=== PATIENT | male | born 1995 | race Two or more races ===

== ENCOUNTER 2021-01-17 10:24 | Inpatient (IN) | payer SELFPAY ==
[~2021-01-17] VITALS: Ht 188 cm; Wt 90.9 kg
[2021-01-17] VITALS (24 sets, daily range): BP systolic 95–120; BP diastolic 57–84
[~2021-01-17 10:24] MED LIST: ETOMIDATE 2MG/ML 10ML VIAL IV ONE; SUCCINYLCHOLINE CHLORIDE 200MG/10ML IV ONE
[2021-01-17] MEDS ORDERED: SODIUM CHLORIDE 0.9% 1,000 ML IV ONE ×2 (10:45→11:00)
[2021-01-17] MEDS ORDERED: NALOXONE HCL 0.4 MG/ML 1ML VIAL IV ONE (10:45)
[2021-01-17 10:58] LABS: BASOPHILS % 0.2 % (0.0-2.0); HEMATOCRIT. 44.3 % (42.0-52.0); HEMOGLOBIN. 14.9 g/dL (14.0-18.0); LYMPHOCYTES % 9.1 % (20.0-50.0); MEAN CORPUSCULAR HEMOGLOBIN 29.2 pg (28.0-32.0); MEAN CORPUSCULAR VOLUME 86.9 fL (80.0-94.0); NEUTROPHILS % 87.7 % (40.0-76.0); PLATELET 302 x1000/uL (130-400); RED CELL DISTRIBUTION WIDTH 13.1 % (11.6-14.6)
[2021-01-17] MEDS ORDERED: PROPOFOL 10MG/ML 100ML 100 ML IV SCH (11:00)
[2021-01-17] MEDS ORDERED: ETOMIDATE 2MG/ML 10ML VIAL IV ONE (11:00)
[2021-01-17] MEDS ORDERED: SUCCINYLCHOLINE CHLORIDE 200MG/10ML IV ONE (11:00)
[2021-01-17 11:05] LABS: CHLORIDE 98 mEq/L (98-107)
[2021-01-17 11:06] LABS: CLARITY URINE CLEAR (CLEAR); COLOR URINE YELLOW (YELLOW); KETONES URINE TRACE (NEGATIVE); LEUKOCYTE ESTERASE URINE NEGATIVE (NEGATIVE); NITRITE URINE NEGATIVE (NEGATIVE); OCCULT BLOOD URINE NEGATIVE (NEGATIVE); PROTEIN URINE TRACE (NEGATIVE); SPECIFIC GRAVITY URINE 1.013 (1.005-1.030)
[2021-01-17] MEDS ORDERED: PIPERACILLIN/TAZOBACTAM 3.375GM/50ML PREMIX IV NR (11:30)
[2021-01-17 11:51] LABS: OPIATES URINE SCREEN NEGATIVE (NEGATIVE)
[2021-01-17 11:52] LABS: *AMPHETAMINES SCREEN URINE NEGATIVE (NEGATIVE); *BARBITURATES SCREEN URINE NEGATIVE (NEGATIVE); *BENZODIAZEPINES SCREEN URINE PRESUMTIVE POSITIVE (NEGATIVE); *COCAINE SCREEN URINE NEGATIVE (NEGATIVE); METHADONE URINE SCREEN NEGATIVE (NEGATIVE); PHENCYCLIDINE URINE SCREEN NEGATIVE (NEGATIVE)
[2021-01-17 11:54] LABS: CANNABINOID URINE SCREEN PRESUMTIVE POSITIVE (NEGATIVE)
[2021-01-17] MEDS ORDERED: MIDAZOLAM 100MG/100ML PMX 100 ML IV PRN (12:00)
[2021-01-17] MEDS: MIDAZOLAM HCL 100 MG in SODIUM CHLORIDE 0.9% 100 ML IV PRN ×2 (12:15→14:24)
[2021-01-17] MEDS: PROPOFOL 10MG/ML 100ML 100 ML IV PRN ×4 (12:17→21:48)
[2021-01-17 14:01] LABS: BG BASE EXCESS 0.3 mmol/L (-2.0-2.0); BG CARBOXYHEMOGLOBIN 0.6 % (0.5-1.5); BG DEOXYHEMOGLOBIN 2.2 % (0.0-5.0); BG FRACTION INSPIRED OXYGEN 100; BG HCO3 ACT 26.2 mmol/L (22.0-26.0); BG METHEMOGLOBIN 0.4 % (0.0-1.5); BG OXYGEN SATURATION 97.8 % (92.0-98.5); BG OXYHEMOGLOBIN 96.8 % (94.0-97.0); BG PCO2 47.1 mmHg (35.0-45.0); BG PH 7.363 (7.350-7.450); BG PO2 102.6 mmHg (75.0-100.0); BG SAMPLE SITE RIGHT RADIAL; BG TOTAL HEMOGLOBIN 14.5 g/dL (12.0-18.0); BG VENT MODE VENT - AC
[2021-01-17] MEDS ORDERED: NITROGLYCERIN 0.4MG TABLET SL SL PRN (15:00)
[2021-01-17] MEDS ORDERED: DOCUSATE SODIUM 100MG CAPSULE PO PRN (15:00)
[2021-01-17] MEDS ORDERED: GUAIFENESIN 200MG/10ML SUGAR FREE UDC PO PRN (15:00)
[2021-01-17] MEDS ORDERED: IPRATROPIUM/ALBUTEROL 0.5-3(2.5)MG/3ML NEB NEB PRN (15:00)
[2021-01-17] MEDS ORDERED: MAGNESIUM/ALUMINUM HYDROXIDE/SIMETHICONE 30ML UDC PO PRN (15:00)
[2021-01-17] MEDS ORDERED: PIPERACILLIN/TAZ 3.375G PREMIX 50 ML IV SCH (15:00)
[2021-01-17] MEDS ORDERED: ONDANSETRON HCL 4MG/2ML INJ IV PRN (15:00)
[2021-01-17] MEDS ORDERED: NOREPINEPHRINE 32 MG in DEXT 5% WATER 218 ML IV PRN (15:00)
[2021-01-17] MEDS ORDERED: IPRATROPIUM/ALBUTEROL 0.5-3(2.5)MG/3ML NEB HHN SCH (15:00)
[2021-01-17 15:35] LABS: T4 FREE 1.05 ng/dL (0.76-1.46)
[2021-01-17] MEDS: ENOXAPARIN 40MG/0.4ML SYR SUBCUT SCH (15:53)
[2021-01-17] MEDS: PANTOPRAZOLE SODIUM 40 MG/VIAL IV SCH (15:53)
[2021-01-17 15:56] LABS: FOLIC ACID (FOLATE) SERUM >20 ng/mL ng/mL (>5.38)
[2021-01-17] MEDS: DEXT 5%/LACTATED RINGERS 1,000 ML IV SCH (15:57)
[2021-01-17 15:58] LABS: FERRITIN 129 ng/mL (22-322)
[2021-01-17] MEDS ORDERED: MIDAZOLAM HCL 100 MG in SODIUM CHLORIDE 0.9% 80 ML IV PRN (16:00)
[2021-01-17 16:08] LABS: VITAMIN B12 SERUM 850 pg/mL (211-911)
[2021-01-17] MEDS ORDERED: VANCOMYCIN 2,000 MG in DEXT 5% WATER 500 ML IV SCH (17:00)
[2021-01-17] MEDS: FENTANYL CITRATE/PF 2,500 MCG in SODIUM CHLORIDE 0.9% 200 ML IV PRN (17:17)
[2021-01-17] MEDS: PIPERACILLIN/TAZOBACTAM 3.375G in DEXT 5% WATER 50ML IV SCH ×2 (17:18→23:32)
[2021-01-17] MEDS ORDERED: *PATIENT'S OWN MEDICATION STORAGE XX SCH (17:45)
[2021-01-17 23:26] LABS: CREATINE KINASE MB FRACTION 7.6 ng/mL (0.5-3.6)
[2021-01-18] VITALS (85 sets, daily range): BP systolic 92–173; BP diastolic 50–136
[2021-01-18] MEDS: PROPOFOL 10MG/ML 100ML 100 ML IV PRN ×6 (00:23→20:38)
[2021-01-18] MEDS: IPRATROPIUM/ALBUTEROL 0.5-3(2.5)MG/3ML NEB HHN SCH ×6 (00:33→20:52)
[2021-01-18] MEDS: DEXT 5%/LACTATED RINGERS 1,000 ML IV SCH ×2 (05:09→17:05)
[2021-01-18] MEDS: PIPERACILLIN/TAZOBACTAM 3.375G in DEXT 5% WATER 50ML IV SCH ×3 (05:22→17:05)
[2021-01-18 06:22] LABS: BASOPHILS % 0.5 % (0.0-2.0); EOSINOPHILS % 0.1 % (0.0-5.0); HEMOGLOBIN. 12.5 g/dL (14.0-18.0); LYMPHOCYTES % 14.8 % (20.0-50.0); MEAN CORPUSCULAR HEMOGLOBIN 28.7 pg (28.0-32.0); MEAN CORPUSCULAR VOLUME 87.2 fL (80.0-94.0); MEAN PLATELET VOLUME 8.5 fl (7.4-10.4); MONOCYTES % 6.9 % (2.0-8.0); NEUTROPHILS % 77.7 % (40.0-76.0); PLATELET 237 x1000/uL (130-400); RED BLOOD CELL COUNT 4.35 mill/uL (4.7-6.1); RED CELL DISTRIBUTION WIDTH 13.1 % (11.6-14.6)
[2021-01-18 06:24] LABS: CHLORIDE 103 mEq/L (98-107)
[2021-01-18 06:42] LABS: CREATINE KINASE MB FRACTION 9.8 ng/mL (0.5-3.6)
[2021-01-18 06:51] LABS: CREATINE KINASE 2393 IU/L (39-308)
[2021-01-18] MEDS: VANCOMYCIN 1 G PREMIX 200 ML IV SCH ×2 (08:06→20:50)
[2021-01-18] MEDS: PANTOPRAZOLE SODIUM 40 MG/VIAL IV SCH (08:06)
[2021-01-18] MEDS: ENOXAPARIN 40MG/0.4ML SYR SUBCUT SCH (08:07)
[2021-01-18] MEDS ORDERED: ENOXAPARIN 60MG/0.6ML SYR SUBCUT NR (08:45)
[2021-01-18] MEDS: ENOXAPARIN 100MG/ML SYR SUBCUT SCH ×2 (09:00→20:50)
[2021-01-18] MEDS ORDERED: PNEUMOCOCCAL 23-VAL P-SAC VAC 0.5 ML IM ONE (09:00)
[2021-01-18] MEDS: ASPIRIN 325MG TABLET PO SCH (09:46)
[2021-01-18] MEDS: QUETIAPINE FUMARATE 25MG TABLET PO SCH (13:30)
[2021-01-18] MEDS: FENTANYL CITRATE/PF 2,500 MCG in SODIUM CHLORIDE 0.9% 200 ML IV PRN ×2 (14:10→20:28)
[2021-01-18 15:02] LABS: BG BASE EXCESS 7.1 mmol/L (-2.0-2.0); BG CARBOXYHEMOGLOBIN 0.3 % (0.5-1.5); BG DEOXYHEMOGLOBIN 4.9 % (0.0-5.0); BG FRACTION INSPIRED OXYGEN 40; BG METHEMOGLOBIN 0.2 % (0.0-1.5); BG OXYGEN SATURATION 95.1 % (92.0-98.5); BG OXYHEMOGLOBIN 94.6 % (94.0-97.0); BG PCO2 51.9 mmHg (35.0-45.0); BG PH 7.421 (7.350-7.450); BG PO2 75.2 mmHg (75.0-100.0); BG SAMPLE SITE RIGHT RADIAL; BG TOTAL HEMOGLOBIN 13.2 g/dL (12.0-18.0); BG VENT MODE VENT - AC
[2021-01-18] MEDS: LORAZEPAM 2MG/ML CPJ IV PRN (20:21)
[2021-01-19] VITALS (93 sets, daily range): BP systolic 98–172; BP diastolic 19–108
[2021-01-19] MEDS: PIPERACILLIN/TAZOBACTAM 3.375G in DEXT 5% WATER 50ML IV SCH ×4 (00:02→17:34)
[2021-01-19] MEDS: IPRATROPIUM/ALBUTEROL 0.5-3(2.5)MG/3ML NEB HHN SCH ×6 (00:11→20:17)
[2021-01-19] MEDS: PROPOFOL 10MG/ML 100ML 100 ML IV PRN ×8 (00:19→22:02)
[2021-01-19 05:41] LABS: CHLORIDE 107 mEq/L (98-107)
[2021-01-19 05:49] LABS: BASOPHILS % 0.7 % (0.0-2.0); EOSINOPHILS % 0.5 % (0.0-5.0); HEMATOCRIT. 36.5 % (42.0-52.0); HEMOGLOBIN. 12.2 g/dL (14.0-18.0); LYMPHOCYTES % 30.2 % (20.0-50.0); MEAN CORPUSCULAR VOLUME 86.5 fL (80.0-94.0); MEAN PLATELET VOLUME 8.5 fl (7.4-10.4); MONOCYTES % 6.3 % (2.0-8.0); NEUTROPHILS % 62.3 % (40.0-76.0); PLATELET 222 x1000/uL (130-400); RED BLOOD CELL COUNT 4.22 mill/uL (4.7-6.1); RED CELL DISTRIBUTION WIDTH 13.2 % (11.6-14.6)
[2021-01-19 05:51] LABS: PROTHROMBIN TIME 10.5 sec (9.6-11.0)
[2021-01-19] MEDS: LORAZEPAM 2MG/ML CPJ IV PRN ×3 (05:57→18:51)
[2021-01-19] MEDS: DEXT 5%/LACTATED RINGERS 1,000 ML IV SCH ×2 (07:12→21:05)
[2021-01-19] MEDS: VANCOMYCIN 1 G PREMIX 200 ML IV SCH (08:45)
[2021-01-19] MEDS: PANTOPRAZOLE SODIUM 40 MG/VIAL IV SCH (08:45)
[2021-01-19] MEDS: ASPIRIN 325MG TABLET PO SCH (08:47)
[2021-01-19] MEDS: ENOXAPARIN 100MG/ML SYR SUBCUT SCH ×2 (08:47→21:00)
[2021-01-19] MEDS: QUETIAPINE FUMARATE 25MG TABLET PO SCH (08:47)
[2021-01-19] MEDS: ASPIRIN 81MG TABLET PO SCH (09:00)
[2021-01-19 09:39] LABS: BG BASE EXCESS 6.1 mmol/L (-2.0-2.0); BG CARBOXYHEMOGLOBIN 0.1 % (0.5-1.5); BG DEOXYHEMOGLOBIN 1.5 % (0.0-5.0); BG FRACTION INSPIRED OXYGEN 40; BG HCO3 ACT 30.8 mmol/L (22.0-26.0); BG METHEMOGLOBIN 0.2 % (0.0-1.5); BG OXYGEN SATURATION 98.5 % (92.0-98.5); BG OXYHEMOGLOBIN 98.2 % (94.0-97.0); BG PCO2 44.7 mmHg (35.0-45.0); BG PH 7.456 (7.350-7.450); BG PO2 126.3 mmHg (75.0-100.0); BG SAMPLE SITE RIGHT RADIAL; BG VENT MODE VENT - AC
[2021-01-19] MEDS: VANCOMYCIN 1500MG in DEXTROSE 5% WATER 250ML IV SCH ×2 (11:32→21:05)
[2021-01-19] MEDS ORDERED: POTASSIUM CHLORIDE 20MEQ/PACKET PO NR (12:30)
[2021-01-19] MEDS: FENTANYL CITRATE/PF 2,500 MCG in SODIUM CHLORIDE 0.9% 200 ML IV PRN (17:28)
[2021-01-19 18:53] LABS: CLARITY URINE CLEAR (CLEAR); COLOR URINE YELLOW (YELLOW); KETONES URINE NEGATIVE (NEGATIVE); LEUKOCYTE ESTERASE URINE TRACE (NEGATIVE); NITRITE URINE NEGATIVE (NEGATIVE); OCCULT BLOOD URINE 2+ (NEGATIVE); PH URINE >=9.0 (4.5-8.0); PROTEIN URINE TRACE (NEGATIVE); SPECIFIC GRAVITY URINE 1.013 (1.005-1.030)
[2021-01-20] VITALS (87 sets, daily range): BP systolic 106–183; BP diastolic 36–96
[2021-01-20] MEDS: PIPERACILLIN/TAZOBACTAM 3.375G in DEXT 5% WATER 50ML IV SCH ×4 (00:08→17:17)
[2021-01-20] MEDS: IPRATROPIUM/ALBUTEROL 0.5-3(2.5)MG/3ML NEB HHN SCH ×6 (00:19→21:22)
[2021-01-20] MEDS: PROPOFOL 10MG/ML 100ML 100 ML IV PRN ×7 (00:47→20:19)
[2021-01-20] MEDS: FENTANYL CITRATE/PF 2,500 MCG in SODIUM CHLORIDE 0.9% 200 ML IV PRN ×3 (03:04→17:18)
[2021-01-20] MEDS: VANCOMYCIN 1500MG in DEXTROSE 5% WATER 250ML IV SCH ×3 (05:21→22:13)
[2021-01-20] MEDS: LORAZEPAM 2MG/ML CPJ IV PRN ×2 (07:36→11:22)
[2021-01-20] MEDS: MIDAZOLAM HCL 100 MG in SODIUM CHLORIDE 0.9% 80 ML IV PRN ×2 (08:02→15:18)
[2021-01-20] MEDS: PANTOPRAZOLE SODIUM 40 MG/VIAL IV SCH (08:39)
[2021-01-20] MEDS: ASPIRIN 81MG TABLET PO SCH (08:39)
[2021-01-20] MEDS: QUETIAPINE FUMARATE 25MG TABLET PO SCH ×2 (08:39→20:19)
[2021-01-20] MEDS: DEXT 5%/LACTATED RINGERS 1,000 ML IV SCH ×2 (08:40→22:13)
[2021-01-20] MEDS: ENOXAPARIN 100MG/ML SYR SUBCUT SCH ×2 (08:40→20:18)
[2021-01-20 09:09] LABS: BG BASE EXCESS 3.6 mmol/L (-2.0-2.0); BG CARBOXYHEMOGLOBIN 0.3 % (0.5-1.5); BG DEOXYHEMOGLOBIN 1.8 % (0.0-5.0); BG FRACTION INSPIRED OXYGEN 40; BG HCO3 ACT 28.8 mmol/L (22.0-26.0); BG METHEMOGLOBIN 0.8 % (0.0-1.5); BG OXYGEN SATURATION 98.2 % (92.0-98.5); BG OXYHEMOGLOBIN 97.1 % (94.0-97.0); BG PCO2 45.8 mmHg (35.0-45.0); BG PH 7.416 (7.350-7.450); BG PO2 136.2 mmHg (75.0-100.0); BG SAMPLE SITE RIGHT RADIAL; BG TOTAL HEMOGLOBIN 12.4 g/dL (12.0-18.0); BG TOTAL RESPIRATORY RATE 16 b/min; BG VENT MODE VENT - AC
[2021-01-20 09:22] LABS: BASOPHILS % 0.5 % (0.0-2.0); EOSINOPHILS % 0.6 % (0.0-5.0); HEMOGLOBIN. 11.5 g/dL (14.0-18.0); MEAN CORPUSCULAR HEMOGLOBIN 29.3 pg (28.0-32.0); MEAN CORPUSCULAR VOLUME 86.8 fL (80.0-94.0); MEAN PLATELET VOLUME 8.2 fl (7.4-10.4); MONOCYTES % 6.8 % (2.0-8.0); NEUTROPHILS % 72.1 % (40.0-76.0); PLATELET 243 x1000/uL (130-400); RED BLOOD CELL COUNT 3.92 mill/uL (4.7-6.1); RED CELL DISTRIBUTION WIDTH 13.1 % (11.6-14.6)
[2021-01-20 09:52] LABS: CHLORIDE 110 mEq/L (98-107)
[2021-01-21] VITALS (46 sets, daily range): BP systolic 117–194; BP diastolic 61–117
[2021-01-21] MEDS: IPRATROPIUM/ALBUTEROL 0.5-3(2.5)MG/3ML NEB HHN SCH ×6 (00:30→21:40)
[2021-01-21] MEDS: PIPERACILLIN/TAZOBACTAM 3.375G in DEXT 5% WATER 50ML IV SCH ×5 (00:47→23:19)
[2021-01-21] MEDS: PROPOFOL 10MG/ML 100ML 100 ML IV PRN ×3 (01:06→08:31)
[2021-01-21] MEDS: MIDAZOLAM HCL 100 MG in SODIUM CHLORIDE 0.9% 80 ML IV PRN (02:49)
[2021-01-21] MEDS: FENTANYL CITRATE/PF 2,500 MCG in SODIUM CHLORIDE 0.9% 200 ML IV PRN (03:45)
[2021-01-21] MEDS: VANCOMYCIN 1500MG in DEXTROSE 5% WATER 250ML IV SCH ×3 (05:02→21:05)
[2021-01-21] MEDS: ASPIRIN 81MG TABLET PO SCH (08:29)
[2021-01-21] MEDS: QUETIAPINE FUMARATE 25MG TABLET PO SCH ×2 (08:29→21:04)
[2021-01-21] MEDS: PANTOPRAZOLE SODIUM 40 MG/VIAL IV SCH (08:29)
[2021-01-21] MEDS: ENOXAPARIN 100MG/ML SYR SUBCUT SCH ×2 (08:30→21:04)
[2021-01-21 09:08] LABS: BG BASE EXCESS 1.6 mmol/L (-2.0-2.0); BG CARBOXYHEMOGLOBIN 0.3 % (0.5-1.5); BG DEOXYHEMOGLOBIN 2.6 % (0.0-5.0); BG FRACTION INSPIRED OXYGEN 40; BG HCO3 ACT 25.9 mmol/L (22.0-26.0); BG METHEMOGLOBIN 0.3 % (0.0-1.5); BG OXYGEN SATURATION 97.4 % (92.0-98.5); BG OXYHEMOGLOBIN 96.8 % (94.0-97.0); BG PCO2 39.7 mmHg (35.0-45.0); BG PH 7.433 (7.350-7.450); BG PO2 98.3 mmHg (75.0-100.0); BG SAMPLE SITE RIGHT RADIAL; BG TOTAL HEMOGLOBIN 11.6 g/dL (12.0-18.0); BG VENT MODE VENT - AC
[2021-01-21 10:46] LABS: BG BASE EXCESS 0.9 mmol/L (-2.0-2.0); BG CARBOXYHEMOGLOBIN 0.3 % (0.5-1.5); BG DEOXYHEMOGLOBIN 3.5 % (0.0-5.0); BG HCO3 ACT 26.3 mmol/L (22.0-26.0); BG METHEMOGLOBIN 0.1 % (0.0-1.5); BG OXYGEN SATURATION 96.5 % (92.0-98.5); BG OXYHEMOGLOBIN 96.1 % (94.0-97.0); BG PCO2 45.1 mmHg (35.0-45.0); BG PH 7.384 (7.350-7.450); BG PO2 91.6 mmHg (75.0-100.0); BG SAMPLE SITE RIGHT RADIAL; BG TOTAL HEMOGLOBIN 12.8 g/dL (12.0-18.0); BG VENT MODE VENT - CPAP
[2021-01-21] MEDS: DEXT 5%/LACTATED RINGERS 1,000 ML IV SCH (12:33)
[2021-01-21] MEDS: CLONIDINE 0.1MG TABLET PO PRN ×2 (14:26→21:04)
[2021-01-22] VITALS (54 sets, daily range): BP systolic 115–195; BP diastolic 50–115
[2021-01-22] MEDS: IPRATROPIUM/ALBUTEROL 0.5-3(2.5)MG/3ML NEB HHN SCH ×6 (00:03→20:35)
[2021-01-22] MEDS: DEXT 5%/LACTATED RINGERS 1,000 ML IV SCH ×2 (01:40→15:29)
[2021-01-22] MEDS: PIPERACILLIN/TAZOBACTAM 3.375G in DEXT 5% WATER 50ML IV SCH ×3 (05:51→22:43)
[2021-01-22] MEDS: VANCOMYCIN 1500MG in DEXTROSE 5% WATER 250ML IV SCH ×3 (05:51→22:43)
[2021-01-22] MEDS: CLONIDINE 0.1MG TABLET PO PRN ×2 (06:12→12:39)
[2021-01-22] MEDS: ENOXAPARIN 100MG/ML SYR SUBCUT SCH ×2 (08:55→09:06)
[2021-01-22] MEDS: QUETIAPINE FUMARATE 25MG TABLET PO SCH ×2 (08:55→21:30)
[2021-01-22] MEDS: ASPIRIN 81MG TABLET PO SCH (08:55)
[2021-01-22] MEDS: PANTOPRAZOLE SODIUM 40 MG/VIAL IV SCH (08:55)
[2021-01-22] MEDS: ACETAMINOPHEN 325MG TABLET PO PRN ×2 (10:50→23:50)
[2021-01-22] MEDS: LORAZEPAM 2MG/ML CPJ IV PRN (18:24)
[2021-01-22] MEDS: LEVETIRACETAM 500MG PREMIX 100 ML IV SCH (21:30)
[2021-01-22] MEDS ORDERED: LORAZEPAM 2MG/ML CPJ IV PRN (22:00)
[2021-01-23] VITALS (58 sets, daily range): BP systolic 106–183; BP diastolic 61–126
[2021-01-23] MEDS: IPRATROPIUM/ALBUTEROL 0.5-3(2.5)MG/3ML NEB HHN SCH ×6 (00:34→21:39)
[2021-01-23] MEDS: DEXT 5%/LACTATED RINGERS 1,000 ML IV SCH ×2 (04:42→17:46)
[2021-01-23] MEDS: CLONIDINE 0.1MG TABLET PO PRN ×2 (06:33→19:42)
[2021-01-23] MEDS: ASPIRIN 81MG TABLET PO SCH (08:24)
[2021-01-23] MEDS: QUETIAPINE FUMARATE 25MG TABLET PO SCH ×2 (08:24→21:09)
[2021-01-23] MEDS: ACETAMINOPHEN 325MG TABLET PO PRN (08:25)
[2021-01-23] MEDS: PANTOPRAZOLE SODIUM 40 MG/VIAL IV SCH (08:26)
[2021-01-23] MEDS: LEVETIRACETAM 500MG PREMIX 100 ML IV SCH ×2 (08:26→21:09)
[2021-01-23] MEDS: ENOXAPARIN 100MG/ML SYR SUBCUT SCH ×2 (08:39→21:08)
[2021-01-23] MEDS ORDERED: OLAN15TA17 MT (13:29)
[2021-01-23] MEDS ORDERED: ESCI5SOL2 PO (13:31)
[2021-01-23] MEDS: NITROGLYCERIN OINT 1GM/INCH UDPKT TD SCH (21:08)
[2021-01-24] VITALS (47 sets, daily range): BP systolic 111–149; BP diastolic 54–90
[2021-01-24] MEDS: IPRATROPIUM/ALBUTEROL 0.5-3(2.5)MG/3ML NEB HHN SCH ×6 (02:41→20:57)
[2021-01-24] MEDS: NITROGLYCERIN OINT 1GM/INCH UDPKT TD SCH ×3 (05:04→21:59)
[2021-01-24] MEDS: DEXT 5%/LACTATED RINGERS 1,000 ML IV SCH ×2 (07:25→21:04)
[2021-01-24] MEDS: PANTOPRAZOLE SODIUM 40 MG/VIAL IV SCH (08:31)
[2021-01-24] MEDS: QUETIAPINE FUMARATE 25MG TABLET PO SCH (08:31)
[2021-01-24] MEDS: ASPIRIN 81MG TABLET PO SCH (08:31)
[2021-01-24] MEDS: ENOXAPARIN 100MG/ML SYR SUBCUT SCH ×2 (08:31→21:06)
[2021-01-24] MEDS: LEVETIRACETAM 500MG PREMIX 100 ML IV SCH ×2 (08:31→21:05)
[2021-01-24 10:17] LABS: INR 1.1; PROTHROMBIN TIME 11.8 sec (9.6-11.0)
[2021-01-25] VITALS (13 sets, daily range): BP systolic 115–134; BP diastolic 56–79
[2021-01-25] MEDS: IPRATROPIUM/ALBUTEROL 0.5-3(2.5)MG/3ML NEB HHN SCH ×6 (00:53→21:15)
[2021-01-25] MEDS: NITROGLYCERIN OINT 1GM/INCH UDPKT TD SCH ×3 (06:50→22:01)
[2021-01-25] MEDS: LEVETIRACETAM 500MG TABLET PO SCH ×2 (08:34→22:02)
[2021-01-25] MEDS: ENOXAPARIN 100MG/ML SYR SUBCUT SCH ×2 (08:34→22:01)
[2021-01-25] MEDS: ASPIRIN 81MG TABLET PO SCH (08:34)
[2021-01-25] MEDS: FAMOTIDINE 20MG TABLET PO SCH ×2 (08:35→22:01)
[2021-01-25] MEDS: DEXT 5%/LACTATED RINGERS 1,000 ML IV SCH ×2 (09:55→22:03)
[2021-01-25 10:12] LABS: BASOPHILS % 0.8 % (0.0-2.0); EOSINOPHILS % 0.8 % (0.0-5.0); HEMATOCRIT. 41.7 % (42.0-52.0); LYMPHOCYTES % 33.1 % (20.0-50.0); MEAN CORPUSCULAR HEMOGLOBIN 28.9 pg (28.0-32.0); MEAN CORPUSCULAR VOLUME 86.4 fL (80.0-94.0); MEAN PLATELET VOLUME 7.3 fl (7.4-10.4); MONOCYTES % 6.9 % (2.0-8.0); NEUTROPHILS % 58.4 % (40.0-76.0); PLATELET 384 x1000/uL (130-400); RED BLOOD CELL COUNT 4.83 mill/uL (4.7-6.1); RED CELL DISTRIBUTION WIDTH 13.4 % (11.6-14.6)
[2021-01-25 10:14] LABS: CHLORIDE 111 mEq/L (98-107)
[2021-01-25] MEDS: ACETAMINOPHEN 325MG TABLET PO PRN ×2 (12:35→18:20)
[2021-01-26] VITALS: BP 130/79
[2021-01-26] MEDS: IPRATROPIUM/ALBUTEROL 0.5-3(2.5)MG/3ML NEB HHN SCH ×6 (00:44→20:53)
[2021-01-26 04:00] VITALS: BP 127/81
[2021-01-26] MEDS: NITROGLYCERIN OINT 1GM/INCH UDPKT TD SCH ×3 (06:00→22:24)
[2021-01-26 08:00] VITALS: BP 125/70
[2021-01-26] MEDS: ASPIRIN 81MG TABLET PO SCH (09:30)
[2021-01-26] MEDS: FAMOTIDINE 20MG TABLET PO SCH ×2 (09:30→20:36)
[2021-01-26] MEDS: LEVETIRACETAM 500MG TABLET PO SCH ×2 (09:30→20:35)
[2021-01-26] MEDS: ENOXAPARIN 100MG/ML SYR SUBCUT SCH ×2 (09:32→20:36)
[2021-01-26 12:00] VITALS: BP 122/75
[2021-01-26] MEDS: DEXT 5%/LACTATED RINGERS 1,000 ML IV SCH (12:58)
[2021-01-26 16:00] VITALS: BP 114/67
[2021-01-26 20:00] VITALS: BP 122/78
[2021-01-26] MEDS: ACETAMINOPHEN 325MG TABLET PO PRN (21:11)
[2021-01-27] VITALS (9 sets, daily range): BP systolic 107–120; BP diastolic 59–80
[2021-01-27] MEDS: IPRATROPIUM/ALBUTEROL 0.5-3(2.5)MG/3ML NEB HHN SCH ×6 (01:05→21:17)
[2021-01-27] MEDS: DEXT 5%/LACTATED RINGERS 1,000 ML IV SCH ×2 (02:07→14:01)
[2021-01-27] MEDS: NITROGLYCERIN OINT 1GM/INCH UDPKT TD SCH ×3 (05:41→23:01)
[2021-01-27] MEDS: ASPIRIN 81MG TABLET PO SCH (10:00)
[2021-01-27] MEDS: FAMOTIDINE 20MG TABLET PO SCH ×2 (10:01→20:52)
[2021-01-27] MEDS: ENOXAPARIN 100MG/ML SYR SUBCUT SCH ×2 (10:01→20:53)
[2021-01-27] MEDS: LEVETIRACETAM 500MG TABLET PO SCH ×2 (10:01→20:52)
[2021-01-28] VITALS (9 sets, daily range): BP systolic 91–133; BP diastolic 58–92
[2021-01-28] MEDS: IPRATROPIUM/ALBUTEROL 0.5-3(2.5)MG/3ML NEB HHN SCH ×6 (00:09→20:35)
[2021-01-28] MEDS: DEXT 5%/LACTATED RINGERS 1,000 ML IV SCH (03:24)
[2021-01-28] MEDS: NITROGLYCERIN OINT 1GM/INCH UDPKT TD SCH ×3 (05:14→21:44)
[2021-01-28] MEDS: ASPIRIN 81MG TABLET PO SCH (08:24)
[2021-01-28] MEDS: LEVETIRACETAM 500MG TABLET PO SCH ×2 (08:24→21:43)
[2021-01-28] MEDS: FAMOTIDINE 20MG TABLET PO SCH ×2 (08:24→21:44)
[2021-01-28] MEDS: ENOXAPARIN 100MG/ML SYR SUBCUT SCH ×2 (08:24→21:43)
[2021-01-28] MEDS: OLANZAPINE 5MG TABLET PO SCH (21:44)
[2021-01-29] VITALS (13 sets, daily range): BP systolic 98–142; BP diastolic 53–77
[2021-01-29] MEDS: IPRATROPIUM/ALBUTEROL 0.5-3(2.5)MG/3ML NEB HHN SCH ×4 (04:12→15:25)
[2021-01-29] MEDS: NITROGLYCERIN OINT 1GM/INCH UDPKT TD SCH ×3 (06:37→21:32)
[2021-01-29] MEDS: LEVETIRACETAM 500MG TABLET PO SCH ×2 (09:45→21:29)
[2021-01-29] MEDS: ASPIRIN 81MG TABLET PO SCH (09:45)
[2021-01-29] MEDS: ENOXAPARIN 100MG/ML SYR SUBCUT SCH ×2 (09:46→21:33)
[2021-01-29] MEDS: FAMOTIDINE 20MG TABLET PO SCH ×2 (09:46→21:29)
[2021-01-29] MEDS: ACETAMINOPHEN 325MG TABLET PO PRN (15:45)
[2021-01-29] MEDS: OLANZAPINE 5MG TABLET PO SCH (21:29)
[2021-01-30] VITALS (7 sets, daily range): BP systolic 109–134; BP diastolic 59–74
[2021-01-30] MEDS: NITROGLYCERIN OINT 1GM/INCH UDPKT TD SCH ×3 (07:00→20:16)
[2021-01-30] MEDS: LEVETIRACETAM 500MG TABLET PO SCH ×2 (08:17→20:15)
[2021-01-30] MEDS: ENOXAPARIN 100MG/ML SYR SUBCUT SCH ×2 (08:17→20:16)
[2021-01-30] MEDS: ASPIRIN 81MG TABLET PO SCH (08:17)
[2021-01-30] MEDS: FAMOTIDINE 20MG TABLET PO SCH ×2 (08:17→20:16)
[2021-01-30] MEDS: IPRATROPIUM/ALBUTEROL 0.5-3(2.5)MG/3ML NEB HHN SCH ×4 (09:17→21:09)
[2021-01-30] MEDS: OLANZAPINE 5MG TABLET PO SCH (20:16)
[2021-01-31] VITALS (7 sets, daily range): BP systolic 99–137; BP diastolic 62–80
[2021-01-31] MEDS: IPRATROPIUM/ALBUTEROL 0.5-3(2.5)MG/3ML NEB HHN SCH ×4 (01:16→11:52)
[2021-01-31] MEDS: NITROGLYCERIN OINT 1GM/INCH UDPKT TD SCH (05:29)
[2021-01-31] MEDS: FAMOTIDINE 20MG TABLET PO SCH (10:02)
[2021-01-31] MEDS: LEVETIRACETAM 500MG TABLET PO SCH (10:02)
[2021-01-31] MEDS: ASPIRIN 81MG TABLET PO SCH (10:02)
[2021-01-31] MEDS: ENOXAPARIN 100MG/ML SYR SUBCUT SCH (10:03)
== END 2021-01-31 17:11 | disposition home or self-care (01) | DRG 720 ==
LOC: ER 10:34 → CVICU 12:44 → EDBEDREQ 12:47 → EDBEDREQTM 12:47 → ENRESERV 13:06 → 5EST 01-24 09:20
PROVIDERS: ADMIT Internal Medicine; ATTEND Internal Medicine
PROC: 5A1945Z Respiratory Ventilation, 24-96 Consecutive Hours (ICD-10-PCS; principal; 2021-01-17)
PROC: 0BH17EZ Insertion of Endotracheal Airway into Trachea, Via Natural or Artificial Opening (ICD-10-PCS; 2021-01-17)
DX: A41.9 Sepsis, unspecified organism (principal); G92 Toxic encephalopathy; J96.01 Acute respiratory failure with hypoxia; J96.02 Acute respiratory failure with hypercapnia; N17.9 Acute kidney failure, unspecified; J68.0 Bronchitis and pneumonitis due to chemicals, gases, fumes and vapors; M62.82 Rhabdomyolysis; E87.1 Hypo-osmolality and hyponatremia; F19.10 Other psychoactive substance abuse, uncomplicated; T40.601A Poisoning by unspecified narcotics, accidental (unintentional), initial encounter; Y92.89 Other specified places as the place of occurrence of the external cause; Z78.1 Physical restraint status; Z79.899 Other long term (current) drug therapy
CPT/HCPCS: 36415; 36600; 71045; 80048; 80053; 80061; 80202; 80305; 80307; 80320; 80329; 81003; 82375; 82550; 82553; 82607; 82728; 82746; 82805; 83036; 83540; 83550; 83615; 83880; 84100; 84145; 84439; 84443; 84478; 84484; 85025; 87070; 92610; 93005; 93306; 93970; 94002; 94640; 97110; 97116; 97162; 97166; 97530; 97535; 99291; C9113; J0330; J1650; J1953; J2060; J2250; J2310; J2543; J2704; J3010; J3370; J3490; J7030; J7050; J7060; J7121; G0480